=== PATIENT | male | born 1995 | race Hispanic/Latino ===

== ENCOUNTER 2020-05-12 21:13 | Emergency (ER) | payer OTHER ==
[~2020-05-12] VITALS: Ht 175.3 cm; Wt 75.0 kg
[2020-05-12] MEDS ORDERED: DOXYCYCLINE HYCLATE 100MG TABLET PO ONE (22:45)
[2020-05-12] MEDS ORDERED: NAPROXEN 250 MG TAB PO ONE (22:45)
[2020-05-12] MEDS ORDERED: DOXY100C37 PO (22:58)
[2020-05-12 23:41] VITALS: BP 121/77
== END 2020-05-12 23:44 | disposition home or self-care (01) ==
LOC: EEVIPCON 21:13 → M ED 21:13
DX: L03.116 Cellulitis of left lower limb (principal); L02.415 Cutaneous abscess of right lower limb